=== PATIENT | male | born 1980 | race African-American/Black ===

== ENCOUNTER 2016-11-11 15:15 | Emergency (ER) | payer OTHER ==
[~2016-11-11] VITALS: Ht 188 cm; Wt 141.4 kg
[~2016-11-11 15:15] MED LIST: MOTRIN800 MG PO; NORCO 7.5/321 TABLET PO
[2016-11-11 15:55] LABS: HEMATOCRIT 45.8 % (38.0-50.0); MCH 31.5 PG (29.0-34.0); MCHC 32.1 G/DL (30.0-36.0); MCV 98.3 FL (86-99); MEAN PLAT.VOLUME 9.2 uM^3 (9.0-12.4); PLATELET COUNT 330 K/uL (156-360); RBC DIS.WIDTH-CV 11.6 % (11.8-14.6); RBC DIS.WIDTH-SD 41.5 % (39-53); RED BLOOD COUNT 4.66 M/uL (4.00-5.50); WHITE BLOOD COUNT 14.2 K/uL (4.1-10.2)
[2016-11-11 16:22] LABS: TROP-I INTERPRETATION NEGATIVE; TROPONIN-I < 0.01 ng/mL (0.0-0.30)
[2016-11-11 16:29] LABS: CHLORIDE 102 mEq/L (99-109); SODIUM 139 mEq/L (136-147)
[2016-11-11 16:31] LABS: GLUCOSE 103 mg/dL (70-99)
[2016-11-11 16:32] LABS: ANION GAP 8 MEQ/L (2-14)
[2016-11-11 16:35] LABS: GFR ESTIMATE (CALCULATED) > 59 mL/min/; UREA NITROGEN (BUN) 14 mg/dL (9-23)
[2016-11-11 16:47] LABS: TOTAL BILIRUBIN 0.8 mg/dL (0.0-1.0)
[2016-11-11 16:48] LABS: ALKALINE PHOSPHATASE 76 IU/L (3-129); SERUM ETHYL ALCOHOL < 10 mg/dL
[2016-11-11 16:50] LABS: DIRECT BILIRUBIN 0.3 mg/dL (0.0-0.3)
[2016-11-11 16:51] LABS: LIPASE 24 U/L (1.0-51.0)
[2016-11-11] MEDS ORDERED: VERTICALM25 MG PO (18:45)
[2016-11-11] MEDS ORDERED: ZOFRAN ODT4 MG PO (18:45)
[2016-11-11 19:12] VITALS: BP 155/91
[2016-11-11 19:26] LABS: INFLUENZA A VIRAL ANTIGEN NEGATIVE; INFLUENZA B VIRAL ANTIGEN NEGATIVE
== END 2016-11-11 19:14 | disposition home or self-care (01) ==
LOC: EME 15:15
PROVIDERS: Nurse Practitioner Family
DX: R10.13 Epigastric pain (principal); R42 Dizziness and giddiness; Z87.891 Personal history of nicotine dependence
CPT/HCPCS: 71020; 80048; 80076; 83690; 84484; 85027; 87502; 93005; 99281; 99285; G0480

== ENCOUNTER 2016-11-14 22:14 | Inpatient (IN) | payer OTHER ==
[~2016-11-14] VITALS: Ht 185.4 cm; Wt 133.6 kg
[~2016-11-14 22:14] MED LIST changes: +VERTICALM25 MG PO; +ZOFRAN ODT4 MG PO
[2016-11-14 23:09] LABS: CHLORIDE 101 mEq/L (99-109); POTASSIUM 3.6 mEq/L (3.7-5.4); SODIUM 137 mEq/L (136-147)
[2016-11-14 23:11] LABS: GLUCOSE 123 mg/dL (70-99)
[2016-11-14 23:12] LABS: ANION GAP 13 MEQ/L (2-14)
[2016-11-14 23:15] LABS: ALKALINE PHOSPHATASE 85 IU/L (3-129); GFR ESTIMATE (CALCULATED) > 59 mL/min/
[2016-11-14 23:16] LABS: UREA NITROGEN (BUN) 13 mg/dL (9-23)
[2016-11-14 23:25] LABS: TOTAL BILIRUBIN 2.5 mg/dL (0.0-1.0)
[2016-11-14 23:37] LABS: HEMATOCRIT 44.3 % (38.0-50.0); MCH 31.8 PG (29.0-34.0); MCHC 34.1 G/DL (30.0-36.0); MEAN PLAT.VOLUME 9.5 uM^3 (9.0-12.4); PLATELET COUNT 369 K/uL (156-360); RBC DIS.WIDTH-CV 11.3 % (11.8-14.6); RBC DIS.WIDTH-SD 38.5 % (39-53); RED BLOOD COUNT 4.75 M/uL (4.00-5.50)
[2016-11-14 23:38] LABS: MCV 93.3 FL (86-99); WHITE BLOOD COUNT 21.8 K/uL (4.1-10.2)
[2016-11-14 23:42] LABS: ADD MIUA? YES; BILIRUBIN MODERATE; BLOOD NEGATIVE; COLOR AMBER ((YELLOW)); GLUCOSE (STRIP) NEGATIVE; KETONES NEGATIVE; LEUKOCYTES NEGATIVE; NITRITE NEGATIVE; PROTEIN (STRIP) 100; SPECIFIC GRAVITY 1.029 (1.000-1.030)
[2016-11-14 23:58] LABS: BACTERIA RARE /HPF; EPITHELIAL CELLS NONE SEEN /HPF; MUCUS 2+ /LPF; RED BLOOD CELLS 0-5 /HPF (0-5); UCUL ADDED? NO; WHITE BLOOD CELLS 0-5 /HPF (0-5)
[2016-11-15 00:10] LABS: ICTOTEST NEGATIVE
[2016-11-15] MEDS ORDERED: GAS RELIEF125 M1 PO (01:38)
[2016-11-15] MEDS ORDERED: PERCOCET 5/31 TABLET PO (01:39)
[2016-11-15 04:21] LABS: SERUM ETHYL ALCOHOL < 10 mg/dL
[2016-11-15 05:05] VITALS: BP 115/78
[2016-11-15 07:30] VITALS: BP 131/90
[2016-11-15 09:08] LABS: HEMATOCRIT 40.8 % (38.0-50.0); MCH 31.9 PG (29.0-34.0); MCHC 33.6 G/DL (30.0-36.0); MCV 94.9 FL (86-99); MEAN PLAT.VOLUME 9.7 uM^3 (9.0-12.4); PLATELET COUNT 346 K/uL (156-360); RBC DIS.WIDTH-CV 11.6 % (11.8-14.6); RBC DIS.WIDTH-SD 40.2 % (39-53); WHITE BLOOD COUNT 17.1 K/uL (4.1-10.2)
[2016-11-15 09:27] LABS: ALKALINE PHOSPHATASE 89 IU/L (3-129); ANION GAP 11 MEQ/L (2-14); CHLORIDE 106 MEQ/L (99-109); GFR ESTIMATE (CALCULATED) > 59 mL/min/; GLUCOSE 119 mg/dL (70-99); POTASSIUM 3.7 MEQ/L (3.7-5.4); SAMPLE HEMOLYSIS CHECK 0; SAMPLE ICTERIC CHECK 1; SAMPLE LIPEMIA CHECK 0; SODIUM 142 MEQ/L (136-147); UREA NITROGEN (BUN) 14 mg/dL (9-23)
[2016-11-15 12:28] VITALS: BP 143/68
[2016-11-15 16:00] VITALS: BP 141/73
[2016-11-15 20:00] VITALS: BP 157/92
[2016-11-16 00:30] VITALS: BP 134/84
[2016-11-16 04:22] VITALS: BP 123/66
[2016-11-16 06:20] LABS: BASOPHIL COUNT 0.1 K/uL (0-0.1); EOSINOPHIL (%) 0.1 % (0-5); HEMATOCRIT 38.8 % (38.0-50.0); IMMATURE GRANULOCYTE (%) 0.7 % (0.0-0.7); IMMATURE GRANULOCYTE COUNT 0.1 K/uL; INSTRUMENT ABS NEUTROPHIL CT 10.4 K/uL; LYMPHOCYTE COUNT 1.6 K/uL (1.0-2.8); MCH 31.3 PG (29.0-34.0); MCHC 32.5 G/DL (30.0-36.0); MCV 96.3 FL (86-99); MEAN PLAT.VOLUME 9.8 uM^3 (9.0-12.4); MONOCYTE (%) 12.8 % (3-12); MONOCYTE COUNT 1.8 K/uL (0-0.8); NEUTROPHIL (%) 74.3 % (45-76); NEUTROPHIL COUNT 10.4 K/uL (1.8-6.4); PLATELET COUNT 330 K/uL (156-360); RBC DIS.WIDTH-CV 11.7 % (11.8-14.6); RBC DIS.WIDTH-SD 41.1 % (39-53); RED BLOOD COUNT 4.03 M/uL (4.00-5.50)
[2016-11-16 06:46] LABS: ALKALINE PHOSPHATASE 79 IU/L (3-129); ANION GAP 10 MEQ/L (2-14); CHLORIDE 99 MEQ/L (99-109); GFR ESTIMATE (CALCULATED) > 59 mL/min/; GLUCOSE 101 mg/dL (70-99); POTASSIUM 3.5 MEQ/L (3.7-5.4); SAMPLE HEMOLYSIS CHECK 0; SAMPLE ICTERIC CHECK 0; SAMPLE LIPEMIA CHECK 0; SODIUM 136 MEQ/L (136-147); TOTAL BILIRUBIN 2.5 MG/DL (0.0-1.0); UREA NITROGEN (BUN) 9 mg/dL (9-23)
[2016-11-16 07:30] VITALS: BP 112/58
[2016-11-16 09:03] LABS: FERRITIN 562 NG/ML (22-322)
[2016-11-16 10:32] LABS: HBSG INDEX 0.22
[2016-11-16 10:33] LABS: AHBS INDEX 0; HEPATITIS B SURFACE ANTIBODY Nonreactive; HPCA INDEX 0.08
[2016-11-16 10:54] VITALS: BP 141/83
[2016-11-16 16:19] VITALS: BP 147/81
[2016-11-16 19:44] VITALS: BP 145/74
[2016-11-17] VITALS: BP 137/85
[2016-11-17 07:30] VITALS: BP 151/86
[2016-11-17 07:33] LABS: HEMATOCRIT 37.1 % (38.0-50.0); MCHC 32.3 G/DL (30.0-36.0); MCV 95.9 FL (86-99); MEAN PLAT.VOLUME 9.5 uM^3 (9.0-12.4); PLATELET COUNT 343 K/uL (156-360); RBC DIS.WIDTH-CV 11.6 % (11.8-14.6); RBC DIS.WIDTH-SD 40.7 % (39-53); RED BLOOD COUNT 3.87 M/uL (4.00-5.50); WHITE BLOOD COUNT 17.5 K/uL (4.1-10.2)
[2016-11-17 08:01] LABS: ALKALINE PHOSPHATASE 81 IU/L (3-129); ANION GAP 10 MEQ/L (2-14); CHLORIDE 98 MEQ/L (99-109); GFR ESTIMATE (CALCULATED) > 59 mL/min/; GLUCOSE 105 mg/dL (70-99); POTASSIUM 3.3 MEQ/L (3.7-5.4); SAMPLE HEMOLYSIS CHECK 0; SAMPLE ICTERIC CHECK 0; SAMPLE LIPEMIA CHECK 0; SODIUM 134 MEQ/L (136-147); UREA NITROGEN (BUN) 7 mg/dL (9-23)
[2016-11-17 08:02] LABS: TOTAL BILIRUBIN 1.7 MG/DL (0.0-1.0)
[2016-11-17 16:00] VITALS: BP 142/90
[2016-11-18 00:12] VITALS: BP 144/89
[2016-11-18 07:15] LABS: BASOPHIL COUNT 0.1 K/uL (0-0.1); EOSINOPHIL (%) 0.7 % (0-5); EOSINOPHIL COUNT 0.1 K/uL (0-0.3); HEMATOCRIT 37.4 % (38.0-50.0); IMMATURE GRANULOCYTE (%) 4.1 % (0.0-0.7); IMMATURE GRANULOCYTE COUNT 0.7 K/uL; INSTRUMENT ABS NEUTROPHIL CT 11.9 K/uL; LYMPHOCYTE COUNT 1.6 K/uL (1.0-2.8); MCH 31.2 PG (29.0-34.0); MCHC 32.4 G/DL (30.0-36.0); MCV 96.4 FL (86-99); MEAN PLAT.VOLUME 9.6 uM^3 (9.0-12.4); MONOCYTE (%) 12.5 % (3-12); MONOCYTE COUNT 2.1 K/uL (0-0.8); NEUTROPHIL (%) 72.7 % (45-76); NEUTROPHIL COUNT 11.9 K/uL (1.8-6.4); NRBC (%) 0.1 /100 WBC (0-0); PLATELET COUNT 368 K/uL (156-360); RBC DIS.WIDTH-CV 11.7 % (11.8-14.6); RBC DIS.WIDTH-SD 41.4 % (39-53); RED BLOOD COUNT 3.88 M/uL (4.00-5.50); WHITE BLOOD COUNT 16.4 K/uL (4.1-10.2)
[2016-11-18 08:29] VITALS: BP 153/91
[2016-11-18 08:51] LABS: ANION GAP 12 MEQ/L (2-14); CHLORIDE 97 MEQ/L (99-109); POTASSIUM 3.8 MEQ/L (3.7-5.4); SAMPLE HEMOLYSIS CHECK 0; SAMPLE ICTERIC CHECK 0; SAMPLE LIPEMIA CHECK 0; SODIUM 133 MEQ/L (136-147)
[2016-11-18 08:57] LABS: ALKALINE PHOSPHATASE 96 IU/L (3-129); GFR ESTIMATE (CALCULATED) > 59 mL/min/; GLUCOSE 118 mg/dL (70-99); UREA NITROGEN (BUN) 8 mg/dL (9-23)
[2016-11-18 15:47] VITALS: BP 146/94
[2016-11-18 23:51] VITALS: BP 173/87
[2016-11-19 07:07] LABS: HEMATOCRIT 36.6 % (38.0-50.0); MCH 31.4 PG (29.0-34.0); MCHC 32.2 G/DL (30.0-36.0); MCV 97.3 FL (86-99); MEAN PLAT.VOLUME 9.2 uM^3 (9.0-12.4); NRBC (%) 0.2 /100 WBC (0-0); PLATELET COUNT 459 K/uL (156-360); RBC DIS.WIDTH-CV 11.7 % (11.8-14.6); RBC DIS.WIDTH-SD 41.9 % (39-53); RED BLOOD COUNT 3.76 M/uL (4.00-5.50); WHITE BLOOD COUNT 17.2 K/uL (4.1-10.2)
[2016-11-19 07:28] LABS: ANION GAP 10 MEQ/L (2-14); CHLORIDE 96 MEQ/L (99-109); GFR ESTIMATE (CALCULATED) > 59 mL/min/; GLUCOSE 124 mg/dL (70-99); POTASSIUM 3.6 MEQ/L (3.7-5.4); SAMPLE HEMOLYSIS CHECK 0; SAMPLE ICTERIC CHECK 0; SAMPLE LIPEMIA CHECK 0; SODIUM 131 MEQ/L (136-147); UREA NITROGEN (BUN) 7 mg/dL (9-23)
[2016-11-19 07:50] VITALS: BP 146/89
[2016-11-19 08:50] LABS: ABS NEUTROPHIL COUNT 12.1; BAND NEUTROPHILS 2.6 % (0-8.0); BASOPHILS 0.9 %; EOSINOPHIL ABS CT 0.2; EOSINOPHILS 0.9 % (0-5.0); INSTRUMENT ABS NEUTROPHIL CT 11.5 K/uL; LYMPHOCYTES 10.5 % (15.0-45.0); PLAT.SUFFICIENCY INCREASED; SEG.NEUTROPHILS 67.6 % (46.0-76.0); SMUDGE CELLS 2.6
[2016-11-19 12:59] LABS: C DIFF TOXIN POSITIVE (NEGATIVE)
[2016-11-19 13:01] LABS: PROBE CHECK PASS
[2016-11-19 15:32] VITALS: BP 141/87
[2016-11-19 23:58] VITALS: BP 165/93
[2016-11-20 06:49] LABS: HEMATOCRIT 35.2 % (38.0-50.0); MCH 31.1 PG (29.0-34.0); MCHC 31.8 G/DL (30.0-36.0); MCV 97.8 FL (86-99); MEAN PLAT.VOLUME 9.3 uM^3 (9.0-12.4); NRBC (%) 0.2 /100 WBC (0-0); PLATELET COUNT 478 K/uL (156-360); RBC DIS.WIDTH-CV 11.8 % (11.8-14.6); RBC DIS.WIDTH-SD 41.7 % (39-53); WHITE BLOOD COUNT 18.1 K/uL (4.1-10.2)
[2016-11-20 07:58] VITALS: BP 126/70
[2016-11-20 08:15] LABS: ABS NEUTROPHIL COUNT 14.7; ANISOCYTOSIS 1+; BASOPHILS 0.9 %; EOSINOPHIL ABS CT 0; INSTRUMENT ABS NEUTROPHIL CT 12.4 K/uL; LYMPHOCYTES 7.1 % (15.0-45.0); METAMYELOCYTES 4.4 %; MICROCYTOSIS 1+; MYELOCYTES 0.9 %; NUCLEATED RBC'S 0.9; PLAT.SUFFICIENCY INCREASED; SEG.NEUTROPHILS 81.4 % (46.0-76.0); SPHEROCYTES 1+
[2016-11-20 08:23] LABS: ALKALINE PHOSPHATASE 81 IU/L (3-129); ANION GAP 11 MEQ/L (2-14); CHLORIDE 97 MEQ/L (99-109); GFR ESTIMATE (CALCULATED) > 59 mL/min/; GLUCOSE 107 mg/dL (70-99); POTASSIUM 4.2 MEQ/L (3.7-5.4); SAMPLE HEMOLYSIS CHECK 0; SAMPLE ICTERIC CHECK 0; SAMPLE LIPEMIA CHECK 0; SODIUM 133 MEQ/L (136-147); TOTAL BILIRUBIN 2.2 MG/DL (0.0-1.0); UREA NITROGEN (BUN) 7 mg/dL (9-23)
[2016-11-20 16:07] VITALS: BP 140/80
[2016-11-20 23:56] VITALS: BP 143/86
[2016-11-21 07:33] VITALS: BP 143/83
[2016-11-21 08:20] LABS: HEMATOCRIT 35.3 % (38.0-50.0); MCH 31.1 PG (29.0-34.0); MCV 97.2 FL (86-99); MEAN PLAT.VOLUME 9.1 uM^3 (9.0-12.4); NRBC (%) 0.1 /100 WBC (0-0); PLATELET COUNT 535 K/uL (156-360); RBC DIS.WIDTH-CV 11.8 % (11.8-14.6); RBC DIS.WIDTH-SD 41.9 % (39-53); RED BLOOD COUNT 3.63 M/uL (4.00-5.50); WHITE BLOOD COUNT 23.2 K/uL (4.1-10.2)
[2016-11-21 08:38] LABS: ALKALINE PHOSPHATASE 79 IU/L (3-129); ANION GAP 11 MEQ/L (2-14); C-REACTIVE PROTEIN 230.1 MG/L (0-10); CHLORIDE 99 MEQ/L (99-109); DIRECT BILIRUBIN 0.9 mg/dL (0.0-0.3); GFR ESTIMATE (CALCULATED) > 59 mL/min/; GLUCOSE 104 mg/dL (70-99); POTASSIUM 4.2 MEQ/L (3.7-5.4); SAMPLE HEMOLYSIS CHECK 0; SAMPLE ICTERIC CHECK 0; SAMPLE LIPEMIA CHECK 0; SODIUM 135 MEQ/L (136-147); TOTAL BILIRUBIN 1.9 MG/DL (0.0-1.0); UREA NITROGEN (BUN) 8 mg/dL (9-23)
[2016-11-21 09:19] LABS: ABS NEUTROPHIL COUNT 18.9; BAND NEUTROPHILS 1.3 % (0-8.0); BASOPHILS 0.4 %; EOSINOPHIL ABS CT 0; INSTRUMENT ABS NEUTROPHIL CT 17.1 K/uL; LYMPHOCYTES 5.7 % (15.0-45.0); MYELOCYTES 3.5 %; NUCLEATED RBC'S 0.9; PLAT.SUFFICIENCY INCREASED; POLYCHROMASIA 1+; SEG.NEUTROPHILS 80.3 % (46.0-76.0)
[2016-11-21 12:45] LABS: INTER. NORMALIZED RATIO 1.2; PROTHROMBIN TIME 12.3 (9.2-11.2); PTT 31.7 (25-32)
[2016-11-22 00:13] VITALS: BP 132/77
[2016-11-22 07:09] LABS: MCH 30.9 PG (29.0-34.0); MCHC 31.4 G/DL (30.0-36.0); MCV 98.4 FL (86-99); MEAN PLAT.VOLUME 9.2 uM^3 (9.0-12.4); NRBC (%) 0.1 /100 WBC (0-0); PLATELET COUNT 558 K/uL (156-360); RBC DIS.WIDTH-CV 11.8 % (11.8-14.6); RBC DIS.WIDTH-SD 42.6 % (39-53); RED BLOOD COUNT 3.66 M/uL (4.00-5.50); WHITE BLOOD COUNT 17.9 K/uL (4.1-10.2)
[2016-11-22 07:36] LABS: ALKALINE PHOSPHATASE 84 IU/L (3-129); ANION GAP 13 MEQ/L (2-14); CHLORIDE 99 MEQ/L (99-109); GFR ESTIMATE (CALCULATED) > 59 mL/min/; GLUCOSE 99 mg/dL (70-99); POTASSIUM 4.5 MEQ/L (3.7-5.4); SAMPLE HEMOLYSIS CHECK 0; SAMPLE ICTERIC CHECK 0; SAMPLE LIPEMIA CHECK 0; SODIUM 137 MEQ/L (136-147); UREA NITROGEN (BUN) 10 mg/dL (9-23)
[2016-11-22 07:41] VITALS: BP 128/78
[2016-11-22 07:45] LABS: TOTAL BILIRUBIN 1.3 MG/DL (0.0-1.0)
[2016-11-22 08:39] LABS: ABS NEUTROPHIL COUNT 13.2; EOSINOPHIL ABS CT 0; INSTRUMENT ABS NEUTROPHIL CT 12.9 K/uL; OVALOCYTES 1+; PLAT.SUFFICIENCY INCREASED
[2016-11-22 09:29] LABS: HBSG INDEX 0.22
[2016-11-22 09:31] LABS: ANTI-HEPATITIS A VIRUS (IGM) Nonreactive; ANTI-HEPATITIS B CORE (IGM) Nonreactive; HAV INDEX 0.19
[2016-11-22 15:05] VITALS: BP 138/84
[2016-11-23] VITALS: BP 136/92
[2016-11-23 06:51] LABS: HEMATOCRIT 36.1 % (38.0-50.0); MCH 31.2 PG (29.0-34.0); MCHC 31.3 G/DL (30.0-36.0); MCV 99.7 FL (86-99); MEAN PLAT.VOLUME 9.1 uM^3 (9.0-12.4); NRBC (%) 0.1 /100 WBC (0-0); PLATELET COUNT 595 K/uL (156-360); RBC DIS.WIDTH-CV 11.8 % (11.8-14.6); RBC DIS.WIDTH-SD 43.8 % (39-53); RED BLOOD COUNT 3.62 M/uL (4.00-5.50); WHITE BLOOD COUNT 15.8 K/uL (4.1-10.2)
[2016-11-23 07:49] VITALS: BP 140/80
[2016-11-23 07:58] LABS: CHLORIDE 103 mEq/L (99-109); POTASSIUM 4.7 mEq/L (3.7-5.4)
[2016-11-23 07:59] LABS: SODIUM 140 mEq/L (136-147)
[2016-11-23 08:00] LABS: GLUCOSE 100 mg/dL (70-99)
[2016-11-23 08:02] LABS: ANION GAP 13 MEQ/L (2-14)
[2016-11-23 08:04] LABS: GFR ESTIMATE (CALCULATED) > 59 mL/min/
[2016-11-23 08:05] LABS: UREA NITROGEN (BUN) 11 mg/dL (9-23)
[2016-11-23 08:40] LABS: CHLORIDE 103 mEq/L (99-109); POTASSIUM 4.7 mEq/L (3.7-5.4); SODIUM 141 mEq/L (136-147)
[2016-11-23 08:42] LABS: GLUCOSE 103 mg/dL (70-99)
[2016-11-23 08:43] LABS: ANION GAP 15 MEQ/L (2-14)
[2016-11-23 08:44] LABS: TOTAL BILIRUBIN 0.9 mg/dL (0.0-1.0)
[2016-11-23 08:46] LABS: ALKALINE PHOSPHATASE 78 IU/L (3-129); GFR ESTIMATE (CALCULATED) > 59 mL/min/
[2016-11-23 08:47] LABS: UREA NITROGEN (BUN) 11 mg/dL (9-23)
[2016-11-23 08:57] LABS: EOSINOPHIL ABS CT 0; INSTRUMENT ABS NEUTROPHIL CT 11.6 K/uL; PLAT.SUFFICIENCY INCREASED
[2016-11-23 15:35] VITALS: BP 140/80
[2016-11-24] VITALS: BP 134/86
[2016-11-24 06:47] LABS: HEMATOCRIT 35.4 % (38.0-50.0); MCH 31.6 PG (29.0-34.0); MCHC 31.6 G/DL (30.0-36.0); NRBC (%) 0.1 /100 WBC (0-0); PLATELET COUNT 605 K/uL (156-360); RBC DIS.WIDTH-CV 11.9 % (11.8-14.6); RBC DIS.WIDTH-SD 43.7 % (39-53); RED BLOOD COUNT 3.54 M/uL (4.00-5.50); WHITE BLOOD COUNT 14.5 K/uL (4.1-10.2)
[2016-11-24 07:10] LABS: ANION GAP 10 MEQ/L (2-14); CHLORIDE 100 MEQ/L (99-109); GFR ESTIMATE (CALCULATED) > 59 mL/min/; GLUCOSE 90 mg/dL (70-99); POTASSIUM 4.3 MEQ/L (3.7-5.4); SAMPLE HEMOLYSIS CHECK 0; SAMPLE ICTERIC CHECK 0; SAMPLE LIPEMIA CHECK 0; SODIUM 138 MEQ/L (136-147); UREA NITROGEN (BUN) 10 mg/dL (9-23)
[2016-11-24 07:26] LABS: ABS NEUTROPHIL COUNT 10.9; ANISOCYTOSIS 1+; BAND NEUTROPHILS 3.5 % (0-8.0); EOSINOPHIL ABS CT 0.5; EOSINOPHILS 3.5 % (0-5.0); INSTRUMENT ABS NEUTROPHIL CT 10.4 K/uL; LYMPHOCYTES 12.3 % (15.0-45.0); METAMYELOCYTES 1.8 %; PLAT.SUFFICIENCY INCREASED; POLYCHROMASIA 1+; SEG.NEUTROPHILS 71.9 % (46.0-76.0)
[2016-11-24 07:49] VITALS: BP 140/70
[2016-11-24 15:22] VITALS: BP 130/80
[2016-11-24 15:45] VITALS: BP 130/80
[2016-11-24 19:21] VITALS: BP 130/80
[2016-11-25 00:32] VITALS: BP 131/80
[2016-11-25 06:36] LABS: MCH 31.4 PG (29.0-34.0); MCHC 31.2 G/DL (30.0-36.0); MCV 100.6 FL (86-99); NRBC (%) 0.1 /100 WBC (0-0); PLATELET COUNT 608 K/uL (156-360); RBC DIS.WIDTH-SD 43.8 % (39-53); RED BLOOD COUNT 3.38 M/uL (4.00-5.50); WHITE BLOOD COUNT 13.6 K/uL (4.1-10.2)
[2016-11-25 07:01] LABS: ANION GAP 11 MEQ/L (2-14); CHLORIDE 100 MEQ/L (99-109); GFR ESTIMATE (CALCULATED) > 59 mL/min/; GLUCOSE 88 mg/dL (70-99); POTASSIUM 4.2 MEQ/L (3.7-5.4); SAMPLE HEMOLYSIS CHECK 0; SAMPLE ICTERIC CHECK 0; SAMPLE LIPEMIA CHECK 0; SODIUM 139 MEQ/L (136-147); UREA NITROGEN (BUN) 10 mg/dL (9-23)
[2016-11-25 08:22] LABS: ABS NEUTROPHIL COUNT 9.7; ANISOCYTOSIS 1+; EOSINOPHIL ABS CT 0.1; INSTRUMENT ABS NEUTROPHIL CT 9.3 K/uL; PLAT.SUFFICIENCY INCREASED
[2016-11-25 08:34] VITALS: BP 130/81
[2016-11-25 16:56] VITALS: BP 134/82
[2016-11-26 00:17] VITALS: BP 128/83
[2016-11-26 08:06] VITALS: BP 127/83
[2016-11-26 08:47] LABS: HEMATOCRIT 38.6 % (38.0-50.0); MCH 30.8 PG (29.0-34.0); MCHC 31.1 G/DL (30.0-36.0); MEAN PLAT.VOLUME 8.5 uM^3 (9.0-12.4); PLATELET COUNT 686 K/uL (156-360); RBC DIS.WIDTH-CV 11.9 % (11.8-14.6); RBC DIS.WIDTH-SD 43.1 % (39-53); WHITE BLOOD COUNT 11.8 K/uL (4.1-10.2)
[2016-11-26 09:53] LABS: ANISOCYTOSIS 1+; BAND NEUTROPHILS 2.6 % (0-8.0); EOSINOPHIL ABS CT 0.4; EOSINOPHILS 3.5 % (0-5.0); INSTRUMENT ABS NEUTROPHIL CT 8.2 K/uL; LYMPHOCYTES 8.7 % (15.0-45.0); MACROCYTES 1+; METAMYELOCYTES 1.7 %; MYELOCYTES 0.9 %; PLAT.SUFFICIENCY INCREASED; POLYCHROMASIA 1+; SEG.NEUTROPHILS 73.9 % (46.0-76.0)
[2016-11-26] MEDS ORDERED: VANCOCIN HCL125 MG PO (12:27)
[2016-11-26] MEDS ORDERED: AUGMENTIN875 MG PO (12:27)
[2016-11-26] MEDS ORDERED: PERCOCET 5/31 TABLET PO (12:54)
[2016-11-26] MEDS ORDERED: FLAGYL500 MG PO (14:55)
== END 2016-11-26 18:38 | disposition home or self-care (01) | DRG 372 ==
LOC: EME 22:14 → EDOF 11-15 03:27 → 5WEST 11-15 04:49 → 5SOUTH 11-15 11:41 → 5WEST 11-15 11:41 → 5SOUTH 11-16 19:37
PROVIDERS: Hospitalist; Internal Medicine; Internal Medicine Gastroenterology; Radiology Diagnostic Radiology
PROC: 0J9C30Z Drainage of Pelvic Region Subcutaneous Tissue and Fascia with Drainage Device, Percutaneous Approach (ICD-10-PCS; principal; 2016-11-21)
DX: K65.1 Peritoneal abscess (principal); I88.0 Nonspecific mesenteric lymphadenitis; E87.6 Hypokalemia; E86.0 Dehydration; R11.2 Nausea with vomiting, unspecified; R59.0 Localized enlarged lymph nodes; D72.829 Elevated white blood cell count, unspecified; R79.89 Other specified abnormal findings of blood chemistry; K65.4 Sclerosing mesenteritis; R65.10 Systemic inflammatory response syndrome (SIRS) of non-infectious origin without acute organ dysfunction; A04.7 Enterocolitis due to Clostridium difficile; F10.10 Alcohol abuse, uncomplicated; F12.90 Cannabis use, unspecified, uncomplicated; R74.0 Nonspecific elevation of levels of transaminase and lactic acid dehydrogenase [LDH]; R94.8 Abnormal results of function studies of other organs and systems; E66.9 Obesity, unspecified; Z68.38 Body mass index [BMI] 38.0-38.9, adult
CPT/HCPCS: 49406; 74020; 74176; 74177; 75989; 76705; 80048; 80053; 80074; 80076; 81003; 82728; 82948; 83605; 85025; 85027; 85610; 85730; 86140; 86706; 86708 90; 86803; 87040; 87070; 87075; 87076; 87077; 87086; 87177; 87185; 87186; 87205; 87340; 87493; 87506; 99281; 99285; C1729; G0480; J1170; J1644; J1885; J2543; J3010; J7030; J7050

== ENCOUNTER → 2016-12-10 | Outpatient (CLI) | payer OTHER ==
[~2016-12-10] MED LIST changes: +AUGMENTIN875 MG PO; +FLAGYL500 MG PO; +GAS RELIEF125 M1 PO; +PERCOCET 5/31 TABLET PO; +VANCOCIN HCL125 MG PO
== END | disposition home or self-care (01) ==
LOC: RAD 14:18 → EDSTATUS 14:30 → RAD 14:30
DX: Z48.03 Encounter for change or removal of drains (principal)
CPT/HCPCS: C1769